=== PATIENT | female | born 1935 | race Caucasian/White ===

== ENCOUNTER 2017-11-07 09:09 | Day surgery (SDC) | payer OTHER, MEDICARE ==
[2017-11-07] MEDS ORDERED: IODIXANOL LOCM 100 ML BTL ×2 (10:40→11:29)
[2017-11-07] MEDS ORDERED: LIDOCAINE 1% (MDV) 10 ML INJ (10:40)
[2017-11-07] MEDS ORDERED: FENTAnyl 50 MCG/ML VIAL ×2 (10:41→11:32)
[2017-11-07] MEDS ORDERED: MIDAZOLAM 1 MG/ML 2 ML INJ (10:41)
[2017-11-07] MEDS ORDERED: SOD CHLORIDE 0.9% 1,000 ML IV (11:45)
[2017-11-07] MEDS: ACETAMINOPHEN 325 MG TAB PO (15:53)
== END 2017-11-07 21:30 | disposition home or self-care (01) ==
LOC: SDS 09:09
DX: I21.4 Non-ST elevation (NSTEMI) myocardial infarction (principal); I25.10 Atherosclerotic heart disease of native coronary artery without angina pectoris; I10 Essential (primary) hypertension; E11.9 Type 2 diabetes mellitus without complications
CPT/HCPCS: 82962; 93458